=== PATIENT | female | born 1985 | race Caucasian/White ===

== ENCOUNTER 2018-02-21 08:07 | Inpatient (IN) | payer BC ==
[2018-02-21 08:57] VITALS: BMI 26.3
[2018-02-21] MEDS: Lactated Ringer's 1,000 ML IV SCH ×2 (09:20→17:05)
[2018-02-21] MEDS ORDERED: Promethazine HCl 25 MG/ML VIAL IM PRN (09:25)
[2018-02-21] MEDS ORDERED: Butorphanol Tartrate 1 MG/ML VIAL SLOW IVP PRN (09:25)
[2018-02-21] MEDS ORDERED: Ondansetron PF 4 MG/2 ML Vial IVP PRN (09:25)
[2018-02-21] MEDS ORDERED: Docusate 100 MG CAP PO PRN (09:25)
[2018-02-21] MEDS ORDERED: Acetaminophen 500 MG TAB PO PRN (09:25)
[2018-02-21] MEDS ORDERED: Zolpidem Tartrate 5 MG TAB PO PRN (09:25)
[2018-02-21] MEDS ORDERED: Betamet Acet/Betamet Na Ph 30 MG/5 ML VIAL ONE (09:33)
[2018-02-21] MEDS ORDERED: Magnesium Sulfate 20 gm/500 ml 20 GM/500 ML BAG ONE (09:34)
--- NOTE | 2018-02-21 09:37 | PDOC.LDHP ---
Labor and Delivery H&P Chief complaint: other (spotting) HPI: 33 yo WF presents c/o spotting early this AM, denies SROM. Current gestational age (weeks): 33 Due date: 04/08/18 Dating criteria: first trimester ultrasound Grav: 3 Para: 2 OB History Details: PNC with Dr. Farah. 2 prev. C/S. H/o complete previa. Current complications: other Abnormal US findings: No Past Medical History: hypothyroid Current medications: pre-charisma vitamins, other (Synthroid 150 mmcg/d) Previous surgical history: low tranverse CS (x2) Allergies/Adverse Reactions: Allergies Allergy/AdvReac Type Severity Reaction Status Date / Time cyproheptadine HCl Allergy Severe Verified 08/03/14 06:07 [From Periactin] Sulfa (Sulfonamide Allergy Intermediate Rash Verified 07/03/14 23:34 Antibiotics) Social history: none - Physical Exam Vital signs reviewed and normal: yes General: resting Heart: RRR Lungs: CTAB Abdomen: gravid Extremeties: trace edema FHT: variability present [place] contractions every: UCs q 2-3 min, mild to palpation - OB Labs Blood type: B RH: positive Antibody Screen: negative HIV: negative RPR: negative HEPSAg: negative Rubella: immune - Assessment L&D Assessment: labor (33 week IUP, prev. c/S x2, h/o complete previa) - Plan Plan: admit to L&D, magnesium for neuroprotection (with steroids for FLM, observe closely)
[2018-02-21] MEDS ORDERED: Magnesium 2 GM/50 ML 2 GM in Premix Bag 1 BAG IVPB SCH (09:45)
[2018-02-21 10:00] LABS: Hemoglobin 10.5 g/dL (12.0-16.0); Mean Corpuscular HGB CONC 35.3 g/dL (32.0-36.0); Mean Corpuscular Hemoglobin 30.9 pg (27.0-31.0); Mean Corpuscular Volume 87.5 fL (78.0-98.0); Mean Platelet Volume 6.7 fL (7.4-10.4); Platelet Count 354 thou/uL (130-400); Red Blood Cell (RBC) Count 3.39 mill/uL (4.20-5.40); White Blood Cell (WBC) Count 7.5 thou/uL (4.8-10.8)
[2018-02-21 10:39] LABS: HBSAg Index 0.24 S/CO (0-0.99); Hep B Surf Ag Non-Reactive S/CO (NonReactive); Syphilis Antibody Nonreactive (Nonreactive); Syphilis Antibody Index 0.04 S/CO (<1.00 Non-Reactive)
--- NOTE | 2018-02-21 12:58 | PDOC.EVN ---
Event Note - Event Note Event Note: No bleeding since admit. Labs: H/H= 10.5, plts= 350K, B pos. with negative ABS. Fhts are stable, UCs continue, pt. unaware. USG confirms, vtx, complete previa, cervix length of 3+ cm. Plan: cont. MgS04 and steroids.
[2018-02-21] MEDS: Betamet Acet/Betamet Na Ph 30 MG/5 ML VIAL IM SCH (15:36)
--- NOTE | 2018-02-21 15:47 | ULT ---
LIMITED OB ULTRASOUND: History: Placenta previa with spotting. Evaluate for placenta position. Technique: Multiplanar grayscale and color doppler images were obtained in a limited ultrasound . FINDINGS: There is a single live intrauterine with heart rate of 128 beats/minute. Average age of the fetus based on today's examination is 33 weeks 3 days. The following measurements were taken: BPD 8.14 cm 35 weeks 5 days HC 30.58 cm 34 weeks 0 days AC 29.35 cm 32 weeks 2 days FL 6.46 cm 33 weeks 2 days The placenta is posterior in location and completely covers the internal os of the cervix. Fetus is i n cephalic presentation. MERLE is 10.5 cm, which is normal. IMPRESSION: 1. Complete placenta previa. 2. Single live intrauterine with estimated age of 33 weeks 3 days. POS: SCOTT
[2018-02-21] MEDS ORDERED: Magnesium Sulfate 20 gm/500 ml 4 GM/100 ML BAG IVPB ONE (16:49)
[2018-02-21] MEDS ORDERED: Calcium Gluc 4.6 MEQ/10 ML (100 MG/ML) IV PRN (16:49)
[2018-02-21] MEDS ORDERED: D5 LR 500 ML IV SCH (17:00)
[2018-02-21] MEDS: Ferrous Sulfate 325 MG TAB PO SCH (20:21)
--- NOTE | 2018-02-22 04:22 | PDOC.EVN ---
Event Note - Event Note Event Note: Sleeping soundly. No further bleeding. FHTs stable. UCs seen q 7-8 mins. T&C x2 units ordered earlier. Plan: Cont. MgS04 and give 2nd dose of steroids later today.
[2018-02-22] MEDS: Magnesium Sulfate 20 gm/500 ml 20 GM/500 ML BAG IVPB PRN ×3 (04:48→23:35)
[2018-02-22] MEDS: Lactated Ringer's 1,000 ML IV SCH ×3 (05:52→20:04)
[2018-02-22] MEDS ORDERED: Levothyroxine 150 MCG TAB PO SCH (09:15)
[2018-02-22] MEDS: Betamet Acet/Betamet Na Ph 30 MG/5 ML VIAL IM SCH (11:39)
[2018-02-22] MEDS: Prenatal Vitamin 1 TAB PO SCH (14:29)
[2018-02-22] MEDS: Ferrous Sulfate 325 MG TAB PO SCH ×2 (14:30→17:00)
[2018-02-23] MEDS: Levothyroxine 150 MCG TAB PO SCH (06:14)
--- NOTE | 2018-02-23 07:24 | PDOC.FM ---
- Subjective Subjective: 33 yo with complete previa here for concern of vaginal bleeding. She has had no further bleeding since admission. She is feeling baby move regularly and denies any abdominal pain or vaginal leaking/discharge. - Objective MAR Reviewed: Yes Vital Signs & Weight: Weight Weight 73.936 kg Result Diagrams: 02/21/18 09:30 <Virginia Engle - Last Filed: 02/23/18 07:31> - Objective Vital Signs & Weight: Weight Weight 163 lb Result Diagrams: 02/21/18 09:30 <Adithya Youssef - Last Filed: 02/27/18 07:48> Phys Exam - Physical Examination HEENT: moist MMs, sclera anicteric Neck: supple Respiratory: no wheezing, clear to auscultation bilateral Cardiovascular: RRR, no significant murmur Gastrointestinal: soft, non-tender, positive bowel sounds Musculoskeletal: no edema Neurological: non-focal, moves all 4 limbs Psychiatric: normal affect, A&O x 3 Skin: no rash, cap refill <2 seconds <Virginia Engle - Last Filed: 02/23/18 07:31> Dx/Plan (1) Complete placenta previa nos or without hemorrhage, third trimester Code(s): O44.03 - COMPLETE PLACENTA PREVIA NOS OR WITHOUT HEMOR, THIRD TRI Status: Acute (2) delivery delivered Code(s): O82 - ENCOUNTER FOR DELIVERY WITHOUT INDICATION Status: Acute - Plan Plan: 33 yo at 33.5 by LMP/10.3w sono with complete previa here with vaginal spotting 1. Spotting with complete previa - B pos blood type - H&H stable - s/p C/S x2 - No further bleeding since presentation - FHT reassuring - Ctx initially q7-8, no longer noted 2. IUP - s/p BMZ x2 - Mg for neuroprotection - Will D/C Mg this morning, approx 24 hours after steroid administration for full effect 3. Hypothyroidism - Continue home synthroid - TSH 2.2 in August 4. Anemia - On iron 5. AMA - MaternitiT 21 negative 6. ASCUS pap, HPV positive Dispo: Will continue to monitor for additional 24 hours and discuss further planning with Dr. Farah <Virginia Engle - Last Filed: 02/23/18 07:31> Attending Addendum - Attending Addendum Date/Time: 02/27/18 0748 I personally evaluated the patient and discussed the management with Dr. Engle I agree with the History, Examination, Assessment and Plan documented above with any addition or exceptions noted below. <Adithya Youssef - Last Filed: 02/27/18 07:48>
[2018-02-23] MEDS: Ferrous Sulfate 325 MG TAB PO SCH ×2 (11:13→17:16)
[2018-02-23] MEDS: Prenatal Vitamin 1 TAB PO SCH (11:37)
[2018-02-23] MEDS: Lactated Ringer's 1,000 ML IV SCH (16:39)
[2018-02-24] MEDS: Levothyroxine 150 MCG TAB PO SCH (06:08)
[2018-02-24 08:26] VITALS: BP 100/55; TEMP 98.2
[2018-02-24] MEDS: Prenatal Vitamin 1 TAB PO SCH (08:35)
[2018-02-24] MEDS: Ferrous Sulfate 325 MG TAB PO SCH (08:36)
--- NOTE | 2018-02-24 12:58 | DIS ---
DATE OF ADMISSION: 02/21/2018 DATE OF DISCHARGE: 02/24/2018 ADMISSION DIAGNOSES: 1. Intrauterine at 33 weeks and 6 days. 2. Complete previa. 3. Prior x2. 4. Vaginal bleeding. DISCHARGE DIAGNOSES: 1. Intrauterine at 33 weeks and 6 days. 2. Complete previa. 3. Prior x2. 4. Vaginal bleeding. DISCHARGE CONDITION: Stable. ATTENDING PHYSICIAN: Zeina Farah M.D. CONSULTATIONS: None. PROCEDURES: None. HISTORY AND PHYSICAL EXAMINATION: Please see previously dictated H&P. HOSPITAL COURSE: A 33-year-old G3, P2 presented at 33 weeks and 3 days with passing a small quarter sized clot per vagina x1 with no continued bleeding following that, some slight crampiness. No painf ul contractions. She was found to be ashlee every 2 minutes on initial evaluation. She had no active vaginal bleeding, but was admitted for tocolysis and administration of betamethasone as well a s observation for continued vaginal bleeding. She had a hemoglobin during her hospitalization that w as decreased mildly at 10.5, hematocrit 29.7, platelets were 354. She was started on magnesium for t ocolysis and this did cause the contractions to subside. She was continued on magnesium until 24 becky rs following steroid administration and then discontinued. She had a continuous monitoring during th is time that was category 1 and a ultrasound that showed complete placenta previa size equal to dates, amniotic fluid of 10.5 and cephalic presentation. She was transferred to the floor following her magnesium and she remained asymptomatic. She was allowed to ambulate, had no further vaginal bl eeding. She was started on iron therapy for mild anemia and her home Synthroid dose was continued. movement was good and her NST the night before discharge was category 1 with no contractions. On the day of her discharge, she had no complaints. Her exam was benign. Abdomen was soft and nonte nder. Extremities; no edema, cyanosis or clubbing. Her vital signs are within normal limits and she was dispositioned for home with being off work for the next week and she may return to work full med e the following week if she has no further vaginal bleeding. She will follow up with me as scheduled on 03/06/2018 and she was given strict precautions for bleeding as well as instructions for no heavy lifting and pelvic rest and the patient understood. No labs or studies are pending at the time of discharge.
== END 2018-02-24 12:00 | disposition home or self-care (01) | DRG 832 ==
LOC: L&D/OP 08:07 → L&D 09:58 → 3SW 02-23 15:10
PROVIDERS: ADMIT Student in an Organized Health Care Education/Training Program; ATTEND Student in an Organized Health Care Education/Training Program
PROC: 4A1HXCZ Monitoring of Products of Conception, Cardiac Rate, External Approach (ICD-10-PCS; principal; 2018-02-21)
PROC: 4A1HXFZ Monitoring of Products of Conception, Cardiac Rhythm, External Approach (ICD-10-PCS; 2018-02-21)
DX: O60.03 Preterm labor without delivery, third trimester (principal); O44.03 Complete placenta previa NOS or without hemorrhage, third trimester; Z3A.33 33 weeks gestation of pregnancy; O34.211 Maternal care for low transverse scar from previous cesarean delivery; O09.523 Supervision of elderly multigravida, third trimester; O26.853 Spotting complicating pregnancy, third trimester; O99.283 Endocrine, nutritional and metabolic diseases complicating pregnancy, third trimester; E03.9 Hypothyroidism, unspecified; O99.013 Anemia complicating pregnancy, third trimester; D64.9 Anemia, unspecified; Z88.2 Allergy status to sulfonamides
CPT/HCPCS: 51702; 59025; 76815; 83735; 85027; 86780; 86850; 86900; 86901; 87340; 99285; J0702; J3475

== ENCOUNTER 2018-03-05 23:31 | Observation (INO) | payer BC ==
[2018-03-06 00:02] VITALS: BMI 26.3
[2018-03-06] MEDS ORDERED: Zolpidem Tartrate 5 MG TAB PO PRN (00:58)
[2018-03-06] MEDS ORDERED: Ondansetron PF 4 MG/2 ML Vial IVP PRN (00:58)
[2018-03-06] MEDS ORDERED: Promethazine HCl 25 MG/ML VIAL IM PRN (00:58)
[2018-03-06] MEDS ORDERED: Acetaminophen 500 MG TAB PO PRN (00:58)
[2018-03-06] MEDS ORDERED: Butorphanol Tartrate 1 MG/ML VIAL SLOW IVP PRN (00:58)
--- NOTE | 2018-03-06 01:03 | PDOC.LDHP ---
Labor and Delivery H&P Chief complaint: other (Vaginal bleeding) HPI: 33yo at 35w2d by LMP with Prior CS x 2 and complete posterior previa. Had episode of vag bleeding moderate amount of blood in toilet, none in underwear, had small amount on subsequent urination in toilet then since being in hospital has not seen any further VB. Has noted pink tinge to urine. No contractions, LOF. Good FM. Current gestational age (weeks): 35 Due date: 04/08/18 Dating criteria: last menstrual period Grav: 3 Para: 2 Current complications: other (complete posterior previa, no concern for accreta on sono) Abnormal US findings: Yes (previa) Past Medical History: hypothyroid Current medications: pre-charisma vitamins, other (levothyroxine) Previous surgical history: low tranverse CS Allergies/Adverse Reactions: Allergies Allergy/AdvReac Type Severity Reaction Status Date / Time cyproheptadine HCl Allergy Severe Verified 03/05/18 23:58 [From Periactin] Sulfa (Sulfonamide Allergy Intermediate Rash Verified 03/05/18 23:58 Antibiotics) Social history: none - Physical Exam Vital signs reviewed and normal: yes General: NAD Heart: RRR Lungs: CTAB Abdomen: gravid Extremeties: no edema FHT: category 1 [place] contractions every: 3min - OB Labs RH: positive Antibody Screen: negative HIV: negative RPR: negative HEPSAg: negative 1 hour GCT: negative GBS: unknown Rubella: immune - Assessment VB #2 from previa at 35w, Prior CS x 2 - Plan Plan: observation in L&D, informed consent obtained -: PtCx noted, IVF hydrate, observation for further vag bleeding. s/p admission for BMZ due to bleed #1 at 33w (minimal bleed), will be for delivery by [facility] if additional bleeding occurs. T&S, CBC ordered. FHT Cat 1, NPO for now.
[2018-03-06] MEDS ORDERED: Lactated Ringer's 1,000 ML IV SCH (01:15)
[2018-03-06 01:18] LABS: Hemoglobin 10.4 g/dL (12.0-16.0); Mean Corpuscular HGB CONC 33.8 g/dL (32.0-36.0); Mean Corpuscular Hemoglobin 29.9 pg (27.0-31.0); Mean Corpuscular Volume 88.4 fL (78.0-98.0); Mean Platelet Volume 7.1 fL (7.4-10.4); Platelet Count 284 thou/uL (130-400); RBC Distribution Width 12.5 % (11.5-14.5); Red Blood Cell (RBC) Count 3.49 mill/uL (4.20-5.40); White Blood Cell (WBC) Count 9.8 thou/uL (4.8-10.8)
[2018-03-06] MEDS ORDERED: Dextrose 5%-Lactated Ringers 1,000 ML IV SCH (02:00)
--- NOTE | 2018-03-06 07:59 | PDOC.LDPN ---
Labor & Delivery Progress Note - Subjective Subjective: comfortable - Objective Vital signs reviewed and normal: yes General: NAD Uterine fundus: non tender FHT: category 1 [place] contractions every: 10min - Assessment (1) Complete placenta previa nos or without hemorrhage, third trimester Code(s): O44.03 - COMPLETE PLACENTA PREVIA NOS OR WITHOUT HEMOR, THIRD TRI Current Visit: No Status: Acute -: s/p VB #2 from complete previa at 35w, small amount at home, none in the hospital. s/p BMZ at 33w, no indication for rescue course after 34wk. Will HLIV, DC cont monitoring, reg diet and if no VB by this pm will plan DC. RCS sched 37w. FHT reassuring.
[2018-03-06] MEDS ORDERED: Levothyroxine Sodium 125 MCG TAB PO SCH (08:00)
[2018-03-06 08:52] VITALS: TEMP 98.2
== END 2018-03-06 16:00 | disposition home health service (06) ==
LOC: L&D/OP 23:31 → L&D 03-06 01:51
PROVIDERS: ADMIT Student in an Organized Health Care Education/Training Program; ATTEND Student in an Organized Health Care Education/Training Program
DX: O44.03 Complete placenta previa NOS or without hemorrhage, third trimester (principal); Z3A.35 35 weeks gestation of pregnancy; Z88.2 Allergy status to sulfonamides
CPT/HCPCS: 85027; 86850; 86900; 86901; 96360; 96361; 99285; G0378

== ENCOUNTER 2018-03-18 05:35 | Inpatient (IN) | payer BC, OTHER ==
[2018-03-18] MEDS: Lactated Ringer's 1,000 ML IV SCH ×2 (10:45→12:49)
[2018-03-18] MEDS ORDERED: Bicitra 30 ML UDCUP PO SCH (10:51)
[2018-03-18] MEDS ORDERED: Promethazine HCl 25 MG/ML VIAL IM PRN ×2 (10:51→15:37)
[2018-03-18] MEDS ORDERED: Ondansetron PF 4 MG/2 ML Vial IVP PRN ×2 (10:51→15:37)
[2018-03-18 11:12] LABS: Hemoglobin 10.6 g/dL (12.0-16.0); Mean Corpuscular HGB CONC 35.1 g/dL (32.0-36.0); Mean Corpuscular Hemoglobin 30.1 pg (27.0-31.0); Mean Platelet Volume 7.2 fL (7.4-10.4); Platelet Count 296 thou/uL (130-400); RBC Distribution Width 12.3 % (11.5-14.5); Red Blood Cell (RBC) Count 3.53 mill/uL (4.20-5.40)
[2018-03-18] MEDS ORDERED: CEFAZOLIN 2 GM/50 ML BAG IVPB SCH (11:15)
[2018-03-18 11:20] VITALS: BMI 26.6
[2018-03-18 12:06] LABS: HBSAg Index 0.24 S/CO (0-0.99); Hep B Surf Ag Non-Reactive S/CO (NonReactive); Syphilis Antibody Nonreactive (Nonreactive); Syphilis Antibody Index 0.03 S/CO (<1.00 Non-Reactive)
[2018-03-18] MEDS ORDERED: Morphine PF 1 MG/ML SYR ONE (13:02)
[2018-03-18] MEDS ORDERED: Ondansetron PF 4 MG/2 ML Vial ONE ×2 (13:03→14:53)
[2018-03-18] MEDS ORDERED: Oxytocin 10 UNITS/ML VIAL ONE (13:03)
[2018-03-18] MEDS ORDERED: Ketorolac Tromethamine 30 MG/ML VIAL ONE ×2 (13:03→14:53)
[2018-03-18] MEDS ORDERED: ePHEDrine/0.9% NaCl/PF SYRINGE 50 mg/10 ml ONE (13:03)
[2018-03-18] MEDS ORDERED: Lidocaine 1% PF 5 ML VIAL ONE (13:07)
[2018-03-18] MEDS ORDERED: Bupivacaine 0.75% W/DEXTROSE 8.25% 2 ML AMP ONE (13:07)
--- NOTE | 2018-03-18 13:49 | PDOC.LDHP ---
Labor and Delivery H&P Chief complaint: scheduled section HPI: 33yo at 37w0d by LMP with prior CS x 2 and current posterior previa for RCS. Has had some brown discharge in last couple of days, no bright red vaginal bleeding. Current gestational age (weeks): 37 Due date: 04/08/18 Dating criteria: last menstrual period Grav: 3 Para: 2 Current complications: none Abnormal US findings: No Past Medical History: hypothyroid Current medications: pre- vitamins, other (levothyroxine) Previous surgical history: low tranverse CS Allergies/Adverse Reactions: Allergies Allergy/AdvReac Type Severity Reaction Status Date / Time cyproheptadine HCl Allergy Severe Verified 03/05/18 23:58 [From Periactin] Sulfa (Sulfonamide Allergy Intermediate Rash Verified 03/05/18 23:58 Antibiotics) Social history: none - Physical Exam Vital signs reviewed and normal: yes General: NAD Heart: RRR Lungs: CTAB Abdomen: gravid Extremeties: no edema FHT: category 1 [place] contractions every: 3min - OB Labs Blood type: B RH: positive Antibody Screen: negative HIV: negative RPR: negative HEPSAg: negative 1 hour GCT: negative GBS: positive Rubella: immune - Assessment L&D Assessment: scheduled repeat section - Plan Plan: admit to L&D, informed consent obtained, anesthesia consult for pain management
[2018-03-18] MEDS ORDERED: Ondansetron HCl/PF 4 MG/2 ML Vial IVP PRN (15:37)
[2018-03-18] MEDS ORDERED: Meperidine HCl/PF 25 MG/ML VIAL SLOW IVP PRN (15:37)
[2018-03-18] MEDS ORDERED: L&D-Morphine 4 MG/ML VIAL SLOW IVP PRN (15:37)
[2018-03-18] MEDS ORDERED: diphenhydrAMINE 50 MG/ML VIAL IVP PRN (15:37)
[2018-03-18] MEDS ORDERED: Promethazine HCl 25 MG SUPP PR PRN (15:37)
[2018-03-18] MEDS ORDERED: Eucerin (Mineral Oil/Petrolatum,White) 30 gm Jar TOP PRN (15:37)
[2018-03-18] MEDS ORDERED: Naloxone HCl 0.4 mg/ml Vial IV PRN (15:37)
[2018-03-18] MEDS ORDERED: HYDROmorphone 2 MG/ML VIAL SLOW IVP PRN (15:37)
[2018-03-18] MEDS ORDERED: Naloxone HCl 0.4 mg/ml Vial IVP PRN ×2 (15:37)
[2018-03-18] MEDS ORDERED: Communication Order-Pharmacy FS SCH (15:45)
[2018-03-18] MEDS ORDERED: Ketorolac Tromethamine 30 MG/ML VIAL IVP SCH (15:45)
--- NOTE | 2018-03-18 16:02 | PDOC.OPDEL ---
OB Operative/Delivery Note Delivery Dr/Surgeon: Gagan Assist: Cecelia Pre-Delivery Diagnosis: scheduled section (complete posterior previa) Procedure/Post Delivery Dx: repeat low transverse CS Weeks gestation: 37 Anesthesia: spinal - Findings A Sex: male Weight: 6 lb 3 oz - 1 min: 9 - 5 min: 9 - Additional Findings/Plan Placenta delivered: spontaneous findings: low transverse hysterotomy without extension, normal uterus, normal tubes, normal ovaries Estimated blood loss: 500, qbl pending Post delivery plan: routine recovery
[2018-03-18] MEDS ORDERED: NS / Oxytocin 40 units/1000ml 1,000 ML ONE (17:35)
[2018-03-18] MEDS ORDERED: Simethicone Chewable 80 MG TAB PO PRN (17:51)
[2018-03-18] MEDS ORDERED: Lanolin Ointment 7 GM TUBE TOP PRN (17:51)
[2018-03-18] MEDS ORDERED: Adacel (T-DAP) 0.5 ML VIAL IM ONE (17:51)
[2018-03-18] MEDS ORDERED: Bisacodyl 10 MG SUPP PR PRN (17:51)
[2018-03-18] MEDS ORDERED: Acetaminophen 325 MG TAB PO PRN (17:51)
[2018-03-18] MEDS: Docusate Calcium (SURFAK) 240 MG CAP PO SCH (22:13)
[2018-03-18] MEDS: Ketorolac Tromethamine 30 MG/ML VIAL IVP PRN (22:16)
[2018-03-19] MEDS ORDERED: HYDROcodone/Acetaminophen 5/325 mg Tablet PO PRN ×2 (03:45)
[2018-03-19] MEDS: Ketorolac Tromethamine 30 MG/ML VIAL IVP PRN (04:17)
[2018-03-19] MEDS: Lactated Ringer's 1,000 ML IV SCH ×3 (04:32→18:41)
[2018-03-19 06:17] LABS: Hemoglobin 9.7 g/dL (12.0-16.0); Mean Corpuscular HGB CONC 34.2 g/dL (32.0-36.0); Mean Corpuscular Hemoglobin 29.9 pg (27.0-31.0); Mean Corpuscular Volume 87.3 fL (78.0-98.0); Platelet Count 259 thou/uL (130-400); RBC Distribution Width 12.3 % (11.5-14.5); Red Blood Cell (RBC) Count 3.23 mill/uL (4.20-5.40)
--- NOTE | 2018-03-19 09:14 | ADD-OP ---
DATE OF SERVICE: 03/18/2018 ADDENDUM I was present and scrubbed to assist the uncomplicated repeat with Dr. Zeina Farah. Pl ease see her note for full details.
[2018-03-19] MEDS: Ferrous Sulfate 325 MG TAB PO SCH ×2 (09:21→17:33)
[2018-03-19] MEDS: Docusate Calcium (SURFAK) 240 MG CAP PO SCH ×2 (09:22→21:23)
[2018-03-19] MEDS: Prenatal Vitamin 1 TAB PO SCH (09:22)
--- NOTE | 2018-03-19 12:27 | PDOC.PP ---
Post Progress Note Post Day #: 1 PO intake tolerated: yes Flatus: yes Ambulation: yes Vital Signs (12 hours) Temp Pulse Resp BP Pulse Ox 03/19/18 11:44 98.3 F 94 20 98/55 L 03/19/18 07:59 98.3 F 80 16 95/51 L 97 03/19/18 04:40 97.6 F 78 18 95/50 L 96 Weight Weight 165 lb - Physical Examination General: NAD Cardiovascular: RRR Respiratory: non-labored breathing Abdominal: no distention, appropriately TTP Fundus firm & at: umb-2 Skin: CS incision dry & intact Neurological: no gross focal deficits Psychiatric: normal affect Result Diagrams: 03/19/18 05:50 Additional Labs: Post Labs Blood Type B POSITIVE 03/18/18 10:31 Hep Bs Antigen Non-Reactive S/CO (NonReactive) 03/18/18 10:31 - Assessment/Plan POD1 s/p RCS VSSAF Hgb 9.6 postsurgery, mild anemia due to surgical blood loss, no sx anemia, cont PNV on DC Routine postop advances, doing well Rh pos RImm Cont postop care, home tomorrow.
[2018-03-19] MEDS ORDERED: Ibuprofen 800 MG TAB PO SCH (14:45)
[2018-03-19] MEDS: Ibuprofen 800 MG TAB PO SCH (21:23)
[2018-03-20] MEDS: Ibuprofen 800 MG TAB PO SCH (05:27)
[2018-03-20] MEDS: Lactated Ringer's 1,000 ML IV SCH (05:28)
--- NOTE | 2018-03-20 06:02 | PDOC.PP ---
Post Progress Note Post Day #: 2 Subjective: Doing well, desires discharge home today PO intake tolerated: yes Flatus: yes Ambulation: yes Vital Signs (12 hours) Temp Pulse Resp BP Pulse Ox 03/20/18 03:40 98.3 F 78 20 104/55 L 99 03/19/18 23:35 98.2 F 79 18 111/51 L 97 03/19/18 21:12 98.0 F 88 20 98/56 L 99 03/19/18 20:00 99 Weight Weight 165 lb - Physical Examination General: NAD Cardiovascular: no m/r/g Respiratory: clear to auscultation bilaterally Abdominal: + bowel sounds, lochia, no distention, appropriately TTP Extremities: negative homans (B) Skin: CS incision dry & intact (Sutured and DB) Neurological: no gross focal deficits Psychiatric: A&Ox3, normal affect Result Diagrams: 03/19/18 05:50 Additional Labs: Post Labs Blood Type B POSITIVE 03/18/18 10:31 Hep Bs Antigen Non-Reactive S/CO (NonReactive) 03/18/18 10:31 (1) delivery, delivered, current hospitalization Code(s): O82 - ENCOUNTER FOR DELIVERY WITHOUT INDICATION Status: Acute - Assessment/Plan POD 2 doing well, s/p scheduled CS for previa...no PPH. Doing well. Incision C/D/I/ OK for discharge and follow up wound check in 2 weeks. DISCHARGE NOTE: Patient's discharge summary completed in physical record Primary DX: S/P Repeat CS for previa
[2018-03-20] MEDS: Ferrous Sulfate 325 MG TAB PO SCH ×2 (08:02→10:08)
[2018-03-20 09:27] VITALS: BP 116/81; TEMP 98.2
[2018-03-20] MEDS: Prenatal Vitamin 1 TAB PO SCH (10:08)
[2018-03-20] MEDS: Docusate Calcium (SURFAK) 240 MG CAP PO SCH (10:09)
== END 2018-03-20 12:35 | disposition home or self-care (01) | DRG 787 ==
LOC: L&D 10:11 → 3SW 18:40
PROVIDERS: ADMIT Student in an Organized Health Care Education/Training Program; ATTEND Student in an Organized Health Care Education/Training Program
PROC: 10D00Z1 Extraction of Products of Conception, Low, Open Approach (ICD-10-PCS; principal; 2018-03-18)
DX: O34.211 Maternal care for low transverse scar from previous cesarean delivery (principal); O44.03 Complete placenta previa NOS or without hemorrhage, third trimester; D62 Acute posthemorrhagic anemia; Z3A.37 37 weeks gestation of pregnancy; Z37.0 Single live birth; O99.824 Streptococcus B carrier state complicating childbirth; O99.02 Anemia complicating childbirth
CPT/HCPCS: 36415; 51702; 85027; 86780; 86850; 86900; 86901; 87340; J1885; J2001; J2274; J2405; J2590; J3490